=== PATIENT | male | born 1995 | race Caucasian/White ===

== ENCOUNTER 2022-05-05 23:54 | Emergency (ER) | payer OTHER ==
--- NOTE | 2022-05-06 00:18 | ED Physician Documentation ---
History of Present Illness - Stated complaint Stated Complaint: CHEST PALPITATIONS - Chief complaint Chief Complaint: Cardiac - History obtained from History obtained from: Patient - History of Present Illness Timing: Enter time (22:20), Today Pain level max: 0 Pain level now: 0 Quality: rapid, irregular (palpitations) Improved by: no ameliorating factors Worsened by: no exacerbating factors - Additonal information Additional information: arrives by private vehicle. c/o rapid and irregular palpitations of sudden onset at 10:20 PM tonight when he was getting into bed. Mild dyspnea. Denies chest pain/tightness/pressure. He says he has had similar but brief and self-limited episodes in the past, lasting a few seconds, and thus has not seen a doctor for this until tonight. Review of Systems Cardiac: reports: Palpitations. denies: Chest pain / pressure, Pedal edema, Calf pain Respiratory: reports: Dyspnea (mild). denies: Cough, Hemoptysis, Wheezing GI: reports: Reviewed and negative Musculoskeletal: denies: Extremity swelling PD PAST MEDICAL HISTORY - Past Medical History Past Medical History: No - Past Surgical History Past Surgical History: No - Allergies Allergies/Adverse Reactions: Allergies Allergy/AdvReac Type Severity Reaction Status Date / Time Penicillins Allergy Rash Verified 05/06/22 00:05 PD ED PE NORMAL - Vitals Vital signs reviewed: Yes - General General: Alert and oriented X 3, No acute distress, Well developed/nourished - Neck Neck: Supple, no meningeal sign - Cardiac Cardiac: No murmur - Respiratory Respiratory: No respiratory distress, Clear bilaterally - Abdomen Abdomen: Soft, Non tender - Extremities Extremities: No edema PD ED PE EXPANDED - Cardiac Cardiac: Tachy, Irregularly irregular Results - Vitals Vitals: Vital Signs - 24 hr 05/05/22 05/06/22 05/06/22 23:59 00:26 00:39 Temperature 36.1 C L Heart Rate 109 H 150 H 139 H Respiratory 14 18 Rate Blood Pressure 185/127 H 167/134 H 144/103 H O2 Saturation 100 96 05/06/22 05/06/22 05/06/22 00:41 00:45 00:50 Temperature Heart Rate 106 H 92 90 Respiratory 16 Rate Blood Pressure 144/103 H 149/100 H 136/88 H O2 Saturation 95 05/06/22 05/06/22 05/06/22 00:55 01:10 01:25 Temperature Heart Rate 106 H 123 H 94 Respiratory Rate Blood Pressure 141/94 H 151/78 H 165/95 H O2 Saturation 05/06/22 05/06/22 05/06/22 01:40 02:20 02:59 Temperature Heart Rate 100 125 H 153 H Respiratory 18 14 Rate Blood Pressure 137/99 H 123/92 H 150/91 H O2 Saturation 96 100 05/06/22 05/06/22 05/06/22 03:03 03:06 03:08 Temperature Heart Rate 145 H 142 H Respiratory 16 22 23 Rate Blood Pressure 166/101 H O2 Saturation 100 96 94 05/06/22 05/06/22 05/06/22 03:09 03:11 03:21 Temperature Heart Rate 78 88 155 H Respiratory 20 18 10 L Rate Blood Pressure 142/89 H O2 Saturation 93 97 05/06/22 05/06/22 05/06/22 03:22 03:37 03:53 Temperature Heart Rate 87 83 83 Respiratory 19 17 18 Rate Blood Pressure 139/105 H 136/94 H 144/97 H O2 Saturation 95 96 98 Oxygen O2 Source Room air - EKG (time done) No standard instances Rate: Rate (enter#) (165) Rhythm: NSR [place]: Normal QRS: Normal Ischemia: Non specific changes (flat/inverted T waves III, aVF) - Labs Labs: Laboratory Tests 05/06/22 05/06/22 05/06/22 00:16 00:16 00:16 WBC 9.2 RBC 5.21 Hgb 15.3 Hct 45.6 MCV 87.5 MCH 29.4 MCHC 33.6 RDW 12.5 Plt Count 247 MPV 11.2 Neut # (Auto) 4.2 Lymph # (Auto) 4.0 H [place] # (Auto) 0.7 Eos # (Auto) 0.3 Baso # (Auto) 0.1 Absolute Nucleated RBC 0.00 Nucleated RBC % 0.0 Sodium 137 Potassium 3.7 Chloride 104 Carbon Dioxide 26 Anion Gap 7.0 BUN 14 Creatinine 1.1 Estimated GFR (MDRD) 80 L Glucose 134 H Calcium 9.9 Total Bilirubin 0.5 AST 28 ALT 65 H Alkaline Phosphatase 51 Troponin I High Sens 6.1 Total Protein 8.5 H Albumin 4.9 Globulin 3.6 Albumin/Globulin Ratio 1.4 Lipase 38 TSH 05/06/22 00:16 WBC RBC Hgb Hct MCV MCH MCHC RDW Plt Count MPV Neut # (Auto) Lymph # (Auto) [place] # (Auto) Eos # (Auto) Baso # (Auto) Absolute Nucleated RBC Nucleated RBC % Sodium Potassium Chloride Carbon Dioxide Anion Gap BUN Creatinine Estimated GFR (MDRD) Glucose Calcium Total Bilirubin AST ALT Alkaline Phosphatase Troponin I High Sens Total Protein Albumin Globulin Albumin/Globulin Ratio Lipase TSH 9.62 H - Rads (name of study) chest xray Radiology: Prelim report reviewed, See rad report Procedures - Procedural sedation Sedation prep: Informed consent, Time out completed, Last meal (21:30), PE performed, ASA 1 - healthy Sedation Medications: propofol Mallampati classification: I Patient status during sedation: Responds to tactile, Vitals remained stable, Maintained airway, Recovered uneventfully Sedation recovery: Recovered uneventfully, Back to baseline Time in sedation (Minutes): 25 - Cardioversion 1 Indication: Tachyarrhythmia Risks, benefits, alternatives explained to: Pt Prep: IV, O2, pvc monitor, Pulse ox, Airway equip Meds: Morphine CS via: Pads, Anterolateral Sync: Biphasic, 100j Post cardioversion rhythm: A-fib Performed by: ED MD 2 Indication: Tachyarrhythmia Risks, benefits, alternatives explained to: Pt Prep: IV, O2, pvc monitor, Pulse ox, Airway equip Meds: Morphine CS via: Anterolateral Sync: Biphasic, 150j Post cardioversion rhythm: NSR Performed by: ED PD MEDICAL DECISION MAKING - ED course Complexity details: reviewed results, re-evaluated patient, considered differential, d/w patient ED course: Presents with new onset atrial fibrillation that had distinct onset earlier tonight (rapid and irregular palpitations). Denies dyspnea, chest pain. Given diltiazem IV x 2 doses, both of which slowed rate to as low as 80s but without conversion to sinus rhythm. After discussion of other options, my recommendation was electrocardioversion and patient agrees with this. Consent reviewed and signed and he was converted to NSR on second attempt as per procedure note above. Held in ED until he was back at baseline mental status. He is asymptomatic on reevaluation. Instructed to follow up with PMD Departure - Departure Disposition: 01 Home, Self Care Clinical Impression: Atrial fibrillation Condition: Good Instructions: ED Afib Comments: Contact your insurance provider to get set up with a local primary care provider and then contact a local provider and make soonest available appointment. You will likely need other tests even if your symptoms do not reoccur (such as an echocardiogram/heart ultrasound). Discharge Date/Time: 05/06/22 04:02
[2022-05-06] MEDS ORDERED: diltiaZEM INJ 5 MG/ML VIAL IVP STA ×2 (00:19→01:14)
[2022-05-06 00:25] LABS: BASOPHILS # (AUTO) 0.1 10^3/uL (0.0-0.1); BASOPHILS % (AUTO) 0.7 %; EOSINOPHILS # (AUTO) 0.3 10^3/uL (0.0-0.7); EOSINOPHILS % (AUTO) 2.9 %; HCT - HEMATOCRIT 45.6 % (42.0-52.0); HGB - HEMOGLOBIN 15.3 g/dL (14.0-18.0); LYMPHOCYTES % (AUTO) 43.8 %; MEAN CORPUSCULAR HEMOGLOBIN 29.4 pg (27.0-31.0); MEAN CORPUSCULAR HGB CONC 33.6 g/dL (32.0-36.0); MEAN CORPUSCULAR VOLUME 87.5 fL (80.0-94.0); MEAN PLATELET VOLUME 11.2 fL (7.4-11.4); MONOCYTES # (AUTO) 0.7 10^3/uL (0.0-1.0); MONOCYTES % (AUTO) 7.3 %; NEUTROPHILS # (AUTO) 4.2 10^3/uL (1.5-6.6); PLT - PLATELET COUNT 247 10^3/uL (130-450); RED BLOOD COUNT 5.21 10^6/uL (4.70-6.10); RED CELL DISTRIBUTION WIDTH 12.5 % (12.0-15.0); WHITE BLOOD COUNT 9.2 x10^3/uL (4.8-10.8)
[2022-05-06 00:44] LABS: ALBUMIN 4.9 g/dL (3.2-5.5); ALBUMIN/GLOBULIN RATIO 1.4 (1.0-2.2); BILIRUBIN,TOTAL 0.5 mg/dL (0.2-1.0); CALCIUM 9.9 mg/dL (8.5-10.3); CREATININE 1.1 mg/dL (0.6-1.2); POTASSIUM 3.7 mmol/L (3.5-5.0); TOTAL PROTEIN 8.5 g/dL (6.7-8.2)
--- NOTE | 2022-05-06 00:51 | XRAY Report ---
PROCEDURE: Chest 1 View X-Ray INDICATIONS: Chest pain TECHNIQUE: One view of the chest was acquired. COMPARISON: None. FINDINGS: Surgical changes and devices: None. Lungs and pleura: No pleural effusions or pneumothorax. Lungs are clear. Mediastinum: Mediastinal contours appear normal. Heart size is normal. Bones and chest wall: No suspicious bony lesions. Overlying soft tissues appear unremarkable. IMPRESSION: 1. No acute cardiopulmonary disease. Reviewed by: Kenroy Kamara MD on 05/06/2022 12:50 AM PDT Approved by: Kenroy Kamara MD on 05/06/2022 12:50 AM PDT Station ID: [id number]
[2022-05-06] MEDS ORDERED: PROPOFOL 200 MG/20 ML VIAL IVP STA (02:35)
[2022-05-06] MEDS ORDERED: MORPHINE 2 MG/ML CARPUJECT IVP STA (02:44)
[2022-05-06 03:55] VITALS: BP 144/97
== END 2022-05-06 04:02 | disposition home or self-care (01) ==
LOC: ED 23:54
DX: I48.91 Unspecified atrial fibrillation (principal)
CPT/HCPCS: 36415; 80053; 83690; 84443; 84484; 85025; 92960; 93005; 94770; 99152; 99153; 99284

== ENCOUNTER 2022-05-28 01:31 | Emergency (ER) | payer OTHER ==
--- NOTE | 2022-05-28 01:40 | ED Physician Documentation ---
History of Present Illness - Stated complaint Stated Complaint: abd pain, N/V - History obtained from History obtained from: Patient - Additonal information Additional information: The patient comes to the emergency department with chief complaint of nausea and vomiting that started about 4 to 6 hours ago. The patient states he ate some frozen takeout pizza immediately after, began to have abdominal cramping and sharp pains. He is also experienced some chills and sweats and then vomited. The patient states that the pain is mostly in his epigastric area and left upper quadrant. He states it comes in waves and is mainly right before he vomits. The patient denies any fevers. He was feeling completely fine before onset of symptoms. 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 However, he states they take contact precautions. The patient is otherwise healthy. He denies any respiratory complaints. No urinary complaints. No other complaints at this time Review of Systems Ten Systems: 10 systems reviewed and negative Constitutional: reports: Chills Eyes: reports: Reviewed and negative Ears: reports: Reviewed and negative Nose: reports: Reviewed and negative Throat: reports: Reviewed and negative Cardiac: reports: Reviewed and negative Respiratory: reports: Reviewed and negative GI: reports: Abdominal Pain, Nausea, Vomiting : reports: Reviewed and negative Skin: reports: Reviewed and negative Musculoskeletal: reports: Reviewed and negative Neurologic: reports: Reviewed and negative Psychiatric: reports: Reviewed and negative Endocrine: reports: Reviewed and negative Immunocompromised: reports: Reviewed and negative PD PAST MEDICAL HISTORY - Past Surgical History Past Surgical History: No - Present Medications Home Medications: Ambulatory Orders Medication Instructions Recorded Confirmed Ondansetron Odt [Zofran] 4 mg TL Q6H PRN #10 tablet 05/28/22 - Allergies Allergies/Adverse Reactions: Allergies Allergy/AdvReac Type Severity Reaction Status Date / Time Penicillins Allergy Rash Verified 05/28/22 01:40 PD ED PE NORMAL - Vitals Vital signs reviewed: Yes - General General: Alert and oriented X 3, No acute distress, Well developed/nourished - HEENT HEENT: Atraumatic, PERRL, EOMI, Moist mucous membranes - Neck Neck: Supple, no meningeal sign - Cardiac Cardiac: RRR, No murmur, Strong equal pulses - Respiratory Respiratory: No respiratory distress, Clear bilaterally - Abdomen Abdomen: Soft, Non distended, Other (Mild tenderness epigastric region.) - Derm Derm: Normal color, Warm and dry, No rash - Extremities Extremities: No deformity, No edema - Neuro Neuro: Alert and oriented X 3 - Psych Psych: Normal mood, Normal affect Results - Vitals Vitals: Vital Signs - 24 hr 05/28/22 05/28/22 05/28/22 01:38 01:40 03:00 Temperature 36.6 C Heart Rate 114 H 96 94 Respiratory 18 16 16 Rate Blood Pressure 154/102 H 148/86 H 142/90 H O2 Saturation 95 100 100 05/28/22 03:32 Temperature 36.5 C Heart Rate 81 Respiratory 16 Rate Blood Pressure 123/76 O2 Saturation 100 Oxygen O2 Source Room air - Labs Labs: Laboratory Tests 05/28/22 01:52 Sodium 136 Potassium 4.3 Chloride 100 L Carbon Dioxide 23 Anion Gap 13.0 BUN 18 Creatinine 1.1 Estimated GFR (MDRD) 80 L Glucose 150 H Calcium 10.0 Total Bilirubin 1.1 H AST 33 ALT 64 H Alkaline Phosphatase 51 Total Protein 8.5 H Albumin 5.0 Globulin 3.5 Albumin/Globulin Ratio 1.4 Lipase 30 PD MEDICAL DECISION MAKING - ED course Complexity details: reviewed results, re-evaluated patient, considered differential, d/w patient ED course: The patient was treated symptomatically with IV fluids and Zofran, and worked up with an ER abdominal panel. His labs were unremarkable. He was feeling much better after fluids and Zofran and I felt he was stable for discharge home. I have given him a prepack and a prescription for Zofran and we have discussed home management and symptoms as well as the usual indications for return. Departure - Departure Disposition: 01 Home, Self Care Clinical Impression: Gastroenteritis Condition: Stable Instructions: ED Gastroenteritis Viral Prescriptions: Ondansetron Odt [Zofran] 4 mg TL Q6H PRN #10 tablet PRN Reason: Nausea / Vomiting Comments: Your electrolytes look good. Most likely, you have acquired one of the many viruses that are going around right now and causing such symptoms. You may take the nausea medication as needed. Please try to drink plenty of clear liquids to help rehydrate. You may restart food when your stomach is feeling up to it, but should start with simple starches and then work up from there. Please follow-up with your primary care physician as needed.
[2022-05-28] MEDS: SODIUM CHLORIDE 0.9% 1,000 ML IV STA (02:02)
[2022-05-28] MEDS: ONDANSETRON 4 MG/2 ML VIAL IVP STA (02:02)
[2022-05-28 02:11] LABS: ALBUMIN/GLOBULIN RATIO 1.4 (1.0-2.2); BILIRUBIN,TOTAL 1.1 mg/dL (0.2-1.0); CREATININE 1.1 mg/dL (0.6-1.2); POTASSIUM 4.3 mmol/L (3.5-5.0); TOTAL PROTEIN 8.5 g/dL (6.7-8.2)
[2022-05-28] MEDS: ONDANSETRON ODT 4 MG Prepack 2 TL PRN (03:32)
[2022-05-28 03:33] VITALS: BP 123/76
== END 2022-05-28 03:32 | disposition home or self-care (01) ==
LOC: ED 01:31
DX: K52.9 Noninfective gastroenteritis and colitis, unspecified (principal)
CPT/HCPCS: 36415; 80053; 83690; 96374; 99282